=== PATIENT | male | born 1975 | race African-American/Black ===

== ENCOUNTER 2018-07-11 23:28 | Emergency (ER) | payer SELFPAY ==
[~2018-07-11] VITALS: Ht 180.3 cm; Wt 123.4 kg
[~2018-07-11 23:28] MED LIST: AMLO5TAB10 PO; ASPI-630 PO; CARV6.2511 PO; HYDR12.575 PO; LISI-334 PO; LOVA20TA2 PO
[2018-07-12 00:17] LABS: CREATININE ISTAT 1.6 mg/dL (0.5-1.4); HEMOGLOBIN ISTAT 15.6 g/dL (14-18); ION CA ISTAT 1.18 mmol/L (1.13-1.32); POTASSIUM ISTAT 3.1 mmol/L (3.5-5.0)
[2018-07-12] MEDS ORDERED: cloNIDine HCL 0.1 MG TABLET PO ONE (00:30)
[2018-07-12] MEDS ORDERED: ACETAMINOPHEN 500 MG TABLET PO ONE (00:30)
--- NOTE | 2018-07-12 00:30 | RAD ---
CT Head W/O Contrast: History: Headache Comparison: none Axial images were obtained without contrast. The echevarria and white matter appears normal and symmetrical for the patients age. There is no mass effect, extraaxial fluid collections or hydrocephalus. There is no gross bleed. There is no focal loss of echevarria-white matter distinction to suggest acute ischemia, i.e. stroke. Impression: No acute findings. RS Compliance Statement: One or more of the following individualized dose reduction techniques were utilized for this examination: 1. Automated exposure control 2. Adjustment of the mA and/or kV according to patient size 3. Use of iterative reconstruction technique Electronically signed by: Pastor Pleitez III, MD (07/12/2018 12:25 AM) [facility]
[2018-07-12 01:09] LABS: BILIRUBIN,URINE NEGATIVE (NEG); CLARITY,URINE CLEAR; COLOR,URINE YELLOW; NITRITE,URINE NEGATIVE (NEG); PH,URINE 5.5; PROTEIN,URINE 100 mg/dL (NEG-TRACE); UROBILINOGEN,URINE 0.2 mg/dL (0.2 mg/dL)
[2018-07-12 01:14] LABS: BARBITURATES NEG (NEG); BENZODIAZEPINES NEG (NEG); CANNABINOIDS NEG (NEG); COCAINE NEG (NEG); METHADONE NEG (NEG); OPIATES NEG (NEG); PHENCYCLIDINE POS (NEG)
[2018-07-12 01:18] LABS: AMPHETAMINE/METHAMPHETAMINE NEG (NEG)
[2018-07-12 01:23] LABS: BACTERIA,URINE 0 /HPF (0-FEW); SQUAMOUS EPITHELIAL CELL,UR FEW /LPF
--- NOTE | 2018-07-12 01:42 | PHYS DOC ---
Past Medical History Past Medical History: High Cholesterol, Hypertension Past Surgical History: No Surgical History Alcohol Use: None Drug Use: Cocaine, Marijuana, Phencyclidine Adult General Chief Complaint Chief Complaint: HEADACHE HPI HPI Patient is a 43 year old male with a history of hypertension, high cholesterol , who presents to the ED today complaining of a 7 out of 10 generalized headache that has been going on since yesterday. Patient describes the pain as throbbing and intermittent. Patient denies any chest pain or shortness of breath. Patient states he has history of hypertension and has not taken his medications for what he believes is 2 weeks though he states he has no PCP and does not have a recollection of the last time he refilled his BP medicines. He states is supposed to be on lisinopril and amlodipine. Review of Systems Review of Systems Constitutional: Denies fever or chills [] Eyes: Denies change in visual acuity, redness, or eye pain [] HENT: Denies nasal congestion or sore throat [] Respiratory: Denies cough or shortness of breath [] Cardiovascular: No additional information not addressed in HPI [] GI: Denies abdominal pain, nausea, vomiting, bloody stools or diarrhea [] : Denies dysuria or hematuria [] Musculoskeletal: Denies back pain or joint pain [] Integument: Denies rash or skin lesions [] Neurologic: Reports headache, denies focal weakness or sensory changes [] All other systems were reviewed and found to be within normal limits, except as documented in this note. Current Medications Current Medications Current Medications Medications (Trade) Dose Ordered Sig/[facility] Start Time Stop Time Status Last Admin Dose Admin Acetaminophen (Tylenol) 1,000 mg 1X ONCE 07/12/18 00:30 07/12/18 00:31 DC 07/12/18 00:40 1,000 MG Clonidine HCl (Catapres) 0.3 mg 1X ONCE 07/12/18 00:30 07/12/18 00:31 DC 07/12/18 00:39 0.3 MG Allergies Allergies Allergies Coded Allergies Type Severity Reaction Last Updated Verified No Known Drug Allergies 12/26/16 No Physical Exam Physical Exam Constitutional: Well developed, well nourished, no acute distress, non-toxic appearance. [] HENT: Normocephalic, atraumatic, bilateral external ears normal, oropharynx moist, no oral exudates, nose normal. [] Eyes: PERRLA, EOMI, conjunctiva normal, no discharge. [] Neck: Normal range of motion, no tenderness, supple, no stridor. [] Cardiovascular:Heart rate regular rhythm, no murmur [] Lungs & Thorax: Bilateral breath sounds clear to auscultation [] Abdomen: Bowel sounds normal, soft, no tenderness, no masses, no pulsatile masses. [] Skin: Warm, dry, no erythema, no rash. [] Back: No tenderness, no CVA tenderness. [] Extremities: No tenderness, no cyanosis, no clubbing, ROM intact, no edema. [] Neurologic: Alert and oriented X 3, normal motor function, normal sensory function, no focal deficits noted. Cranial nerves II through XII intact Psychologic: Affect normal, judgement normal, mood normal. [] Current Patient Data Vital Signs Vital Signs Date Time Temp Pulse Resp B/P (MAP) Pulse Ox O2 Delivery O2 Flow Rate FiO2 07/12/18 00:39 89 183/105 07/12/18 00:30 98.3 20 97 Room Air 98.3 Lab Values Laboratory Tests Test 07/12/18 00:11 07/12/18 00:12 07/12/18 00:50 POC Hemoglobin 15.6 g/dL (14-18) POC Hematocrit 46 % (37-52) POC Sodium 141 mmol/L (135-145) POC Potassium 3.1 mmol/L (3.5-5.0) L POC Chloride 101 mmol/L (98-110) POC Total CO2 29 mmol/L (23-32) Anion Gap 16 mmol/L (6-14) H POC Blood Urea Nitrogen 22 mg/dL (8-26) POC Creatinine 1.6 mg/dL (0.5-1.4) H Glucose Level 164 mg/dL (70-99) H POC Ionized Calcium (Gurpreet) 1.18 mmol/L (1.13-1.32) POC Troponin I 0.09 ng/ml (<0.08) Urine Collection Type Unknown Urine Color Yellow Urine Clarity Clear Urine pH 5.5 Urine Specific [place] 1.015 Urine Protein 100 mg/dL (NEG-TRACE) Urine Glucose (UA) Negative mg/dL (NEG) Urine Ketones (Stick) Negative mg/dL (NEG) Urine Blood Negative (NEG) Urine Nitrite Negative (NEG) Urine Bilirubin Negative (NEG) Urine Urobilinogen Dipstick 0.2 mg/dL (0.2 mg/dL) Urine Leukocyte Esterase Negative (NEG) Urine RBC 6-10 /HPF (0-2) Urine WBC 1-4 /HPF (0-4) Urine Squamous Epithelial Cells Few /LPF Urine Bacteria 0 /HPF (0-FEW) Urine Mucus Slight /LPF Urine Opiates Screen Neg (NEG) Urine Methadone Screen Neg (NEG) Urine Barbiturates Neg (NEG) Urine Phencyclidine Screen Pos (NEG) Urine Amphetamine/Methamphetamine Neg (NEG) Urine Benzodiazepines Screen Neg (NEG) Urine Cocaine Screen Neg (NEG) Urine Cannabinoids Screen Neg (NEG) Urine Ethyl Alcohol Neg (NEG) Laboratory Tests 07/12/18 00:11 EKG EKG [] Radiology/Procedures Radiology/Procedures [] Course & Med Decision Making Course & Med Decision Making Pertinent Labs and Imaging studies reviewed. (See chart for details) This is a 43-year-old male patient presenting to the ED today with complaints of headache intermittently for 2 days. His blood pressure was noted to be elevated on arrival to the ED at 183/105, patient has history of hypertension, has not taken his medications for 2 weeks. Troponin 0.09, EKG was negative, i- STAT chemistry shows potassium of 3.1, patient was given oral potassium replacement. Creatinine 1.6. BUN 22. Patient is also using street drugs including PCP and marijuana. CT of the head is negative. Patient's blood pressure came down to 112/70. Patient was over admission. He declined. Prescription for lisinopril and amlodipine given. Follow-up with his own PCP in the next 7 days. Dragon Disclaimer Dragon Disclaimer This electronic medical record was generated, in whole or in part, using a voice recognition dictation system. Departure Departure Impression: Primary Impression: Accelerated hypertension Additional Impressions: Headache Drug abuse Acute on chronic renal failure Hypokalemia Disposition: 01 HOME, SELF-CARE Condition: STABLE Referrals: NO PCP (PCP) Follow up with your doctor in one week Patient Instructions: Headache, FAQs, Hypertension Additional Instructions: You were evaluated in the emergency room for headache and high blood pressure. We put you on blood pressure medications, take them as prescribed. Please follow -up with your primary care doctor in the next 7 days[address] not using street drugs. Push fluids. Try to diet and exercise. Loose some weight. Scripts Amlodipine Besylate (AMLODIPINE BESYLATE) 10 Mg Tablet 10 MG PO DAILY, #7 TAB Prov: MEKA THOMAS APRN 07/12/18 Lisinopril (LISINOPRIL) 10 Mg Tablet 1 TAB PO DAILY, #7 TAB 0 Refills Prov: MEKA THOMAS APRN 07/12/18 Problem Qualifiers Additional Impressions: Headache Headache type: unspecified Headache chronicity pattern: unspecified pattern Intractability: not intractable Qualified Codes: R51 - Headache Acute on chronic renal failure Acute renal failure type: unspecified Chronic kidney disease stage: unspecified stage Qualified Codes: N17.9 - Acute kidney failure, unspecified; N18.9 - Chronic kidney disease, unspecified MEKA THOMAS APRN Jul 12, 2018 01:42
[2018-07-12] MEDS ORDERED: LISI10TA2 PO (01:48)
[2018-07-12] MEDS ORDERED: AMLO10TA8 PO (01:48)
[2018-07-12] MEDS ORDERED: POTASSIUM CHLORIDE 20 MEQ TABLET.ER. PO ONE (02:00)
[2018-07-12 02:13] VITALS: BP 203/98
--- NOTE | 2018-07-12 07:25 | EKG ---
[facility] [address] [place] [address] Test Date: 2018-07-12 Test Time: 00:20:01 Pat Name: ROZINA JACKSON Department: Room: Gender: M Kids [employer] Attendant: : 1975 Requested By: MEKA THOMAS Order Number: [id number] Reading MD: Esau Brown MD Measurements Intervals [place] Rate: 90 P: 63 KS: 150 QRS: 52 QRSD: 78 T: 156 QT: 368 QTc: 454 Interpretive Statements SINUS RHYTHM LVH WITH REPOL CHANGES Electronically Signed On 07-16-2018 10:20:57 NAIL SPECIALIST by Esau Brown MD
== END 2018-07-12 00:22 | disposition home or self-care (01) ==
LOC: ER 23:29
DX: I12.9 Hypertensive chronic kidney disease with stage 1 through stage 4 chronic kidney disease, or unspecified chronic kidney disease (principal); N18.9 Chronic kidney disease, unspecified; N17.9 Acute kidney failure, unspecified; F19.10 Other psychoactive substance abuse, uncomplicated; R51 Headache; E87.6 Hypokalemia; E78.00 Pure hypercholesterolemia, unspecified
CPT/HCPCS: 70450; 80047; 80307; 81001; 84484; 93005; 99284-25

== ENCOUNTER 2021-04-02 08:01 | Emergency (ER) | payer SELFPAY ==
[~2021-04-02] VITALS: Ht 180.3 cm; Wt 112.4 kg
[~2021-04-02 08:01] MED LIST changes: +AMLO-186 PO; +AMLO-187 PO; -AMLO5TAB10 PO; +ASPI-886 PO; +ATOR20TA58 PO; -LISI-334 PO; +LISI10TA16 PO; +LISI20TA18 PO
--- NOTE | 2021-04-02 08:57 | PHYS DOC ---
Past Medical History Past Medical History: High Cholesterol, Hypertension Additional Past Medical Histor: SLEEP APNEA Past Surgical History: No Surgical History Smoking Status: Never Smoker Alcohol Use: None Drug Use: Cocaine, Marijuana, Phencyclidine General Adult EDM: Chief Complaint: COUGH HPI: HPI: Patient is a 45 year old male here with report of at least 1 week of chest pain, shortness of breath, wheezing, coughing up blood, nausea and vomiting, diarrhea, abdominal discomfort and also what he describes as small hematemesis. He denies fever. He has not checked his temperature, however. He denies any known sick contacts. Denies any travel history. He denies recent hospitalizations within the last 90 days. He is not vaccinated against Covid or influenza. He has severe, uncontrolled, chronic hypertension, and he admits that he has not taken any of his antihypertensives in over 2 months. He reports that he has taken so many different types of blood pressure medicine he is tired of taking them so he just stops. He does report that he has taken metoprolol and amlodipine previously. He reports that he has recently noticed bilateral lower extremity swelling over the last few days, worse today. Review of Systems: Review of Systems: Constitutional: Denies fever or chills. [] HENT: Reports nasal congestion. Respiratory: Reports cough, hemoptysis, dyspnea. Cardiovascular: Chest pain and bilateral lower extremity edema. GI: Denies abdominal pain, nausea, vomiting, and diarrhea. He reports blood- streaked emesis. He denies melena or hematochezia. : Denies urinary symptoms. Musculoskeletal: Denies back pain or joint pain. [] Integument: Denies rash. [] Neurologic: Denies headache, focal weakness or sensory changes. [] [] Psychiatric: Agitation and anxiety. [] Heart Score: C/O Chest Pain: Yes HEART Score for Chest Pain: HEART Score for Chest Pain Response (Comments) Value History Highly Suspicious 2 ECG Nonspecific Repolarizatio 1 Age >45 - < 65 1 Risk Factors 1 or 2 Risk Factors 1 Total 5 Risk Factors: Risk Factors: DM, Current or recent (<one month) smoker, HTN, HLP, family history of CAD, obesity. Risk Scores: Score 0 - 3: 2.5% MACE over next 6 weeks - Discharge Home Score 4 - 6: 20.3% MACE over next 6 weeks - Admit for Clinical Observation Score 7 - 10: 72.7% MACE over next 6 weeks - Early Invasive Strategies Allergies: Allergies: Allergies Coded Allergies Type Severity Reaction Last Updated Verified No Known Drug Allergies 12/26/16 No Physical Exam: PE: Constitutional: Well developed, well nourished, appears much older than stated a ge. He is mildly to moderately ill-appearing. He is nontoxic HENT: Normocephalic, atraumatic, oropharynx is patent and clear. Mucous membranes are moist. Eyes: Sclera clear and anicteric. Neck: Normal range of motion, no tenderness, trachea is midline. Cardiovascular: Tachycardic, regular, +2 posterior tibial and +2 radial pulses bilaterally. Bilateral lower extremity pitting edema. Lungs & Thorax: Moderate tachypnea, diffuse inspiratory and expiratory wheezing bilaterally, bilateral rales and rhonchi, worse in the mid and lower lung crooks, no stridor, speaks in full and clear sentences. No retractions. Abdomen: Abdomen is obese, soft, nondistended, no fluid wave or ascites obviously noted, normal bowel sounds, no apparent tenderness to palpation. Skin: Warm, dry, no erythema, no rash. [] Back: No tenderness, no deformity. Extremities: Bilateral, symmetric, 2+ lower extremity pitting edema. No calf tenderness. No limb deformity. Neurologic: Awake, alert, oriented x3, no facial asymmetry, speech is clear and fluent, gait is steady, normal motor strength, sensation grossly intact. Psychologic: He is anxious, agitated. He was initially more cooperative, but shortly after I saw him and ordered exams and medications, he became angry that he had to wear a mask and have the door shut. He is cursing at me and the nurse, demanding to leave. Current Patient Data: Vital Signs: Vital Signs Date Time Temp Pulse Resp B/P (MAP) Pulse Ox O2 Delivery O2 Flow Rate FiO2 04/02/21 08:26 99.0 111 20 260/176 (204) 97 Room Air 99.0 EKG: EKG: EKG is interpreted at 0854 Rhythm is sinus tachycardia Rate is 106 bpm [place] is normal No STEMI Radiology/Procedures: Radiology/Procedures: IMAGING REPORT Signed PATIENT: ROZINA JACKSON ACCOUNT: [id number] : 1975 LOCATION: ER AGE: 45 SEX: M EXAM STATUS: PRE ER ORD. PHYSICIAN: CHRISTOPHER DURANT DO REASON: dyspnea, chest pain PROCEDURE: PORTABLE CHEST 1V XR CHEST 1V CLINICAL INDICATIONS: Reason: dyspnea, chest pain COMPARISON: April 26, 2019. Findings: New bilateral central interstitial lung infiltrates or bronchitis is evident. No lung consolidation or pleural effusion or pneumothorax is seen. Heart size is prominent. Some of this is due to AP magnification. Mediastinum and pulmonary vasculature are unremarkable. IMPRESSION: New bilateral central interstitial lung infiltrates or acute bronchitis. Prominent heart size some of which is due to AP magnification. Electronically signed by: Félix Bhat MD (04/02/2021 9:27 AM) [id number] DICTATED and SIGNED BY: FÉLIX BHAT MD DATE: 04/02/21 [id number] Course & Med Decision Making: Course & Med Decision Making Shortly after I left the room and discussed my differential diagnosis with him and my plan of care with him, the patient became angry and upset about having to wear a mask and having to have the door shut and demanded to leave AMA. I went back into the patient's room and discussed once again how concerned I am for his wellbeing and for his health. I discussed that he likely has an acute life- threatening condition which may lead to or permanent disability. I explained without proper emergency treatment and stabilization and most likely admission, he could sustain permanent cardiac or pulmonary damage and once again I reiterated that he could if he does not have proper treatment. He re peatedly, loudly, angrily insists on leaving. He is awake, alert, oriented x3. He has verbalized understanding that he knows that he could without proper medical treatment and still insists on leaving. I did my best to try to redirect him, I did my best had explained to him how concerned I am about his health and wellbeing and safety. I asked him to please at least a for return of lab results, and he continues to adamantly refuse. He is adamant that he does not care, he is adamant that he refuses to stay for any further medical evaluation, treatment or diagnostic testing. He is adamant that he wants to leave. I explained that he must sign out AGAINST MEDICAL ADVICE. I told him he may return at any point in time, and I do encourage him to actually follow-up with his primary care physician. I encouraged him to take his antihypertensives as directed. He signed the AMA form. No indication to hold him against as well. Paul Disclaimer: Paul Disclaimer: This electronic medical record was generated, in whole or in part, using a voice recognition dictation system. Departure Departure Impression: Primary Impression: Hypertensive emergency Additional Impressions: Dyspnea Wheezing Chest pain Hemoptysis Nausea and vomiting Non-compliance Disposition: LEFT AGAINST MEDICAL ADVICE Condition: GUARDED Referrals: NO PCP (PCP) Patient Instructions: Chest Pain (Nonspecific), Hypertension, Shortness of Breath Additional Instructions: Please follow-up with your primary care physician. Please take the prescribed medications I have sent to your pharmacy. Return immediately for any worsening symptoms, chest pain, shortness of breath, vomiting, dehydration, abdominal pain, weakness, passing out. I am very concerned about your health and wellbeing, I need you to take your medications as prescribed. I need you to stop smoking. I have recommended admission to the hospital, but you have repeatedly refused any further treatment here in the ER, and you are signing out AGAINST MEDICAL ADVICE. Scripts Albuterol Sulfate (PROAIR HFA INHALER) 8.5 Gm Hfa.aer.ad 2 PUFF IH PRN Q4-6HRS PRN for wheezing, #1 INHALER 1 Refill Prov: BHARGAVCHRISTOPHER GONSALEZ DO 04/02/21 Amlodipine Besylate (AMLODIPINE BESYLATE) 5 Mg Tablet 5 MG PO DAILY, #30 TAB Prov: CHRISTOPHER DURANT DO 04/02/21 Metoprolol Tartrate (METOPROLOL TARTRATE) 50 Mg Tablet 1 TAB PO BID, #60 TAB 5 Refills Prov: CHRISTOPHER DURANT DO 04/02/21 CHRISTOPHER DURANT DO Apr 02, 2021 08:57
[2021-04-02] MEDS ORDERED: IPRATRPIUM/ALBUTEROL 0.5/2.5MG 3 ML NEBU. NEB ONE (09:15)
[2021-04-02] MEDS ORDERED: LABETALOL 20 MG/4 ML DISP.SYRIN. IVP ONE (09:15)
[2021-04-02] MEDS ORDERED: ASPIRIN 325 MG TABLET PO ONE (09:15)
[2021-04-02] MEDS ORDERED: NITROGLYCERIN OINT 1 GM PACKET. TP ONE (09:15)
[2021-04-02] MEDS ORDERED: ONDANSETRON PF 4 MG/2 ML VIAL. ONE (09:19)
[2021-04-02 09:25] VITALS: BP 272/182
[2021-04-02 09:29] LABS: BASO # 0.1 x10^3/uL (0.0-0.2); BASO % 1 % (0-3); EOS # 0.2 x10^3/uL (0.0-0.7); EOS % 2 % (0-3); HEMATOCRIT 33.6 % (39.0-53.0); HEMOGLOBIN 10.7 g/dL (13.0-17.5); LYMPH # 1.1 x10^3/uL (1.0-4.8); LYMPH % 13 % (24-48); MEAN CORPUSCULAR HEMOGLOBIN 26 pg (25-35); MEAN CORPUSCULAR HGB CONC 32 g/dL (31-37); MEAN CORPUSCULAR VOLUME 83 fL (79-100); MONO # 0.7 x10^3/uL (0.0-1.1); MONO % 9 % (0-9); NEUT % 75 % (31-73); PLATELET COUNT 226 x10^3/uL (140-400); RED BLOOD COUNT 4.07 x10^6/uL (4.30-5.70); RED CELL DISTRIBUTION WIDTH 16.5 % (11.5-14.5)
--- NOTE | 2021-04-02 09:29 | RAD ---
XR CHEST 1V CLINICAL INDICATIONS: Reason: dyspnea, chest pain COMPARISON: April 26, 2019. Findings: New bilateral central interstitial lung infiltrates or bronchitis is evident. No lung conso lidation or pleural effusion or pneumothorax is seen. Heart size is prominent. Some of this is due to AP magnification. Mediastinum and pulmonary vasculature are unremarkable. IMPRESSION: New bilateral central interstitial lung infiltrates or acute bronchitis. Prominent heart size some of which is due to AP magnification. Electronically signed by: Félix Bhat MD (04/02/2021 9:27 AM) [id number]
[2021-04-02] MEDS ORDERED: ONDANSETRON PF 4 MG/2 ML VIAL. IVP ONE (09:30)
[2021-04-02] MEDS ORDERED: AMLO-186 PO (09:36)
[2021-04-02] MEDS ORDERED: ALBU2.5V8 IH (09:36)
[2021-04-02] MEDS ORDERED: METO50TA6 PO (09:36)
[2021-04-02 09:40] LABS: CALCIUM 7.7 mg/dL (8.5-10.1); CREATININE 10.5 mg/dL (0.7-1.3); GFR 6.5
[2021-04-02 09:47] LABS: ALBUMIN 2.9 g/dL (3.4-5.0); ALBUMIN/GLOBULIN RATIO 0.8 (1.0-1.7); MAGNESIUM 2.2 mg/dL (1.8-2.4); PHOSPHORUS 5.7 mg/dL (2.6-4.7); TOTAL BILIRUBIN 0.7 mg/dL (0.2-1.0); TOTAL PROTEIN 6.4 g/dL (6.4-8.2)
--- NOTE | 2021-04-03 05:54 | EKG ---
[facility] [address] [place] [address] Test Date: 2021-04-02 Test Time: 08:51:08 Pat Name: ROZINA JACKSON Department: Room: Gender: M Food And Beverage Director: : 1975 Requested By: CHRISTOPHER DURANT Order Number: [id number] Reading MD: Parrish Londono Measurements Intervals [place] Rate: 106 P: 56 ME: 132 QRS: 41 QRSD: 76 T: 66 QT: 378 QTc: 504 Interpretive Statements SINUS TACHYCARDIA LEFT ATRIAL ABNORMALITY Electronically Signed On 04-09-2021 10:47:17 SHAMPOO TECHNICIAN by Parrish Londono
--- NOTE | 2021-04-03 09:39 | NUR ---
IP: Attempted to contact pt concerning covid results. Phone number provided is not in service..
== END 2021-04-02 09:31 | disposition left against medical advice (07) ==
LOC: ER 08:01
DX: I16.1 Hypertensive emergency (principal); Z20.822 Contact with and (suspected) exposure to COVID-19; R06.02 Shortness of breath; R06.2 Wheezing; R07.89 Other chest pain; R04.2 Hemoptysis; R11.2 Nausea with vomiting, unspecified; Z91.19 Patient's noncompliance with other medical treatment and regimen; E78.00 Pure hypercholesterolemia, unspecified; I10 Essential (primary) hypertension
CPT/HCPCS: 36415; 71045; 80053; 82550; 83690; 83735; 83880; 84100; 84484; 85025; 87426; 93005; 99285; U0003; U0005